=== PATIENT | female | born 1965 | race Caucasian/White ===

== ENCOUNTER 2021-06-17 08:20 | Outpatient (CLI) | payer OTHER, SELFPAY ==
--- NOTE | 2021-06-17 08:29 | EKG12_ITS ---
Test Reason : PRE OP Blood Pressure : / mmHG Vent. Rate : 060 BPM Atrial Rate : 060 BPM P-R Int : 198 ms QRS Dur : 090 ms QT Int : 424 ms P-R-T Axes : 043 050 076 degrees QTc Int : 424 ms Normal sinus rhythm Normal ECG Confirmed by BRE ZHAO, MARY ([id number]), tape editor JORDYN WOOD ([id number]) on 06/20/2021 10:49:26 AM Referred By: Jourdan Daniels Confirmed By:MARY DÍAZ MD
== END 2021-06-17 23:59 | disposition short-term general hospital (02) ==
LOC: PSN 08:28
PROVIDERS: PCP Family Medicine; Referring Provider Student in an Organized Health Care Education/Training Program; Visit Provider Student in an Organized Health Care Education/Training Program
DX: Z01.818 Encounter for other preprocedural examination (principal); Z01.811 Encounter for preprocedural respiratory examination; Z01.810 Encounter for preprocedural cardiovascular examination
CPT/HCPCS: 93005